=== PATIENT | female | born 1935 | race Caucasian/White ===

== ENCOUNTER 2016-09-29 09:27 | Observation (INO) | payer MEDICARE, MEDICAID ==
[~2016-09-29] VITALS: Ht 154.9 cm; Wt 73.5 kg
[~2016-09-29 09:27] MED LIST: AMBIEN5 MG PO; ASPIRIN EC81 MG PO; BUPROPION HCL75 MG PO; COMBIVENT RESPIM4 GM INH; COUMADIN3 MG PO; FENOFIBRIC ACI135 MG PO; KLONOPIN1 MG PO; LEXAPRO20 MG PO; LIPITOR80 MG PO; LOTENSIN20 MG PO; NITROSTAT0.4 MG SL; NORCO 325-5 MG1 TAB PO; NORVASC10 MG PO; PEPCID AC20 MG PO; VESICARE10 MG PO; VIT D; ZEBETA5 MG PO
[2016-09-29] MEDS ORDERED: MULTIVITAMINS1 EAC1 PO (11:26)
[2016-09-29] MEDS ORDERED: MOBIC15 MG PO (11:27)
[2016-09-29] MEDS ORDERED: VITAMIN B-121000 MCG PO (11:27)
[2016-09-29] MEDS ORDERED: VITAMIN D5000 UNIT PO (11:30)
[2016-09-29] MEDS ORDERED: NITROSTAT0.4 MG SL (11:31)
== END 2016-10-01 13:35 ==
LOC: ER 09:27 → RAD 09:28 → ER 11:55 → IP 11:55 → OBS 11:55 → IP 11:55
PROVIDERS: ADMIT Family Medicine
DX: R42 Dizziness and giddiness (principal); R53.1 Weakness; J44.9 Chronic obstructive pulmonary disease, unspecified; R79.1 Abnormal coagulation profile; N28.9 Disorder of kidney and ureter, unspecified; I10 Essential (primary) hypertension; E11.9 Type 2 diabetes mellitus without complications; I25.10 Atherosclerotic heart disease of native coronary artery without angina pectoris; K21.9 Gastro-esophageal reflux disease without esophagitis; R53.81 Other malaise; G89.29 Other chronic pain; M54.5 Low back pain; M19.90 Unspecified osteoarthritis, unspecified site; F41.8 Other specified anxiety disorders; Z86.73 Personal history of transient ischemic attack (TIA), and cerebral infarction without residual deficits; Z87.891 Personal history of nicotine dependence; Z88.0 Allergy status to penicillin; Z88.1 Allergy status to other antibiotic agents; Z88.8 Allergy status to other drugs, medicaments and biological substances; Z91.011 Allergy to milk products; Z91.018 Allergy to other foods; Z79.1 Long term (current) use of non-steroidal anti-inflammatories (NSAID); Z79.01 Long term (current) use of anticoagulants; Z79.82 Long term (current) use of aspirin; Z79.899 Other long term (current) drug therapy; Z90.49 Acquired absence of other specified parts of digestive tract; Z90.89 Acquired absence of other organs; Z95.0 Presence of cardiac pacemaker; Z95.1 Presence of aortocoronary bypass graft; Z98.890 Other specified postprocedural states
CPT/HCPCS: A9150; G0378; G8987-GO; G8987-GP; G8988-GO; G8988-GP; J3430

== ENCOUNTER → 2017-02-08 | Outpatient (CLI) | payer MEDICARE, MEDICAID ==
[~2017-02-08] MED LIST changes: +MOBIC15 MG PO; +MULTIVITAMINS1 EAC1 PO; +VITAMIN B-121000 MCG PO; +VITAMIN D5000 UNIT PO
== END | disposition short-term general hospital (02) ==
LOC: CLONCO 13:04
DX: Z08 Encounter for follow-up examination after completed treatment for malignant neoplasm (principal); Z85.72 Personal history of non-Hodgkin lymphomas